=== PATIENT | male | born 1965 | race Caucasian/White ===

== ENCOUNTER → 2023-08-29 | Outpatient (CLI) | payer OTHER | LOC: MHCPAIN 09:40 | DX: M79.7 Fibromyalgia (principal); M54.50 Low back pain, unspecified; M79.18 Myalgia, other site; M25.511 Pain in right shoulder; M25.512 Pain in left shoulder; M25.561 Pain in right knee; M25.562 Pain in left knee | CPT/HCPCS: G0463 ==